=== PATIENT | female | born 1945 | race Caucasian/White ===

== ENCOUNTER 2016-11-21 05:50 | Day surgery (SDC) | payer MEDICARE, OTHER ==
[~2016-11-21] VITALS: Ht 160 cm; Wt 70.0 kg
[2016-11-21] MEDS ORDERED: ZOLP10TA PO (06:43)
[2016-11-21] MEDS ORDERED: METO25TA35 PO (06:43)
[2016-11-21] MEDS ORDERED: HYDR25TA6 PO (06:43)
[2016-11-21] MEDS ORDERED: LACTATED RINGERS 1,000 ML IV SCH (06:43)
[2016-11-21] MEDS ORDERED: LEVO100T PO (06:43)
[2016-11-21] MEDS ORDERED: LISI-170 PO (06:43)
[2016-11-21] MEDS ORDERED: vitamin b12 inj IM (06:43)
[2016-11-21 06:45] VITALS: BP 139/80
[2016-11-21] MEDS ORDERED: LIDOCAINE 1%, 2ML SQ PRN (07:00)
[2016-11-21] MEDS ORDERED: FENTANYL PF 100 MCG/2ML ONE (07:02)
[2016-11-21 07:29] LABS: ASPARTATE AMINO TRANSFERASE 14 U/L (15-37); BLOOD UREA NITROGEN 20 mg/dL (7-18)
[2016-11-21] MEDS ORDERED: PHENYLEPHRINE 10 MG/ML ONE (07:41)
[2016-11-21] MEDS ORDERED: EPHEDRINE 50 MG/ML, 1ML ONE ×2 (07:41→09:34)
[2016-11-21] MEDS ORDERED: GLYCOPYRROLATE 0.2MG/1ML ONE (07:41)
[2016-11-21] MEDS ORDERED: NEOSTIGMINE 1 MG/ML, 10ML ONE (07:41)
[2016-11-21] MEDS ORDERED: ONDANSETRON 2MG/ML, 2ML ONE (07:41)
[2016-11-21] MEDS ORDERED: PROPOFOL 10 MG/ML, 20ML ONE (07:41)
[2016-11-21] MEDS ORDERED: ROCURONIUM 10 MG/ML ONE (07:41)
[2016-11-21] MEDS ORDERED: FENTANYL PF 100 MCG/2ML IV PRN (09:00)
[2016-11-21] MEDS ORDERED: hydrALAzine 20 MG/ML, 1ML IV PRN (09:00)
[2016-11-21] MEDS ORDERED: PROMETHAZINE 25 MG/ML, 1ML IV PRN (09:00)
[2016-11-21] MEDS ORDERED: HYDROmorphone 1 MG/ML, 1ML IV PRN (09:00)
[2016-11-21] MEDS ORDERED: ACETAMINOPHEN 325 MG TABLET PO PRN (09:00)
[2016-11-21] MEDS ORDERED: OXYcodone 5 MG/5 ML ORAL.SOL UDC PO PRN (09:00)
[2016-11-21] MEDS ORDERED: METOPROLOL 1 MG/ML, 5ML IV PRN (09:00)
[2016-11-21] MEDS ORDERED: OMNIPAQUE 350 MG/ML, 50 ML BOTTLE ONE (09:16)
[2016-11-21] MEDS ORDERED: EPHEDRINE 50 MG/ML, 1ML IVPush PRN (10:00)
== END 2016-11-21 11:30 | disposition home or self-care (01) ==
LOC: OUT 05:50
PROVIDERS: ATTEND Internal Medicine Gastroenterology
DX: K80.51 Calculus of bile duct without cholangitis or cholecystitis with obstruction (principal); T85.898A Other specified complication of other internal prosthetic devices, implants and grafts, initial encounter; Y83.8 Other surgical procedures as the cause of abnormal reaction of the patient, or of later complication, without mention of misadventure at the time of the procedure; I10 Essential (primary) hypertension; E03.9 Hypothyroidism, unspecified; E53.8 Deficiency of other specified B group vitamins; Z90.49 Acquired absence of other specified parts of digestive tract; Z87.891 Personal history of nicotine dependence
CPT/HCPCS: 36415; 43265; 43276; 74328; 80053; 82330; 82803; 82947; 84132; 84295; 85014; 93005; C1725; C1769; C1874; J2370; J2405; J2704; J2710; J3010; J7120; Q9967; J3490

== ENCOUNTER 2017-03-06 11:48 | Day surgery (SDC) | payer MEDICARE, OTHER ==
[~2017-03-06] VITALS: Ht 160 cm; Wt 72.0 kg
[~2017-03-06 11:48] MED LIST: HYDR25TA6 PO; LEVO100T PO; LISI-170 PO; METO25TA35 PO; ZOLP10TA PO; vitamin b12 inj IM
[2017-03-06] MEDS ORDERED: LACTATED RINGERS 1,000 ML IV SCH (12:23)
[2017-03-06] MEDS ORDERED: VITAMIN D PO (12:26)
[2017-03-06] MEDS ORDERED: LIDOCAINE 1%, 2ML SQ PRN (12:30)
[2017-03-06 12:31] VITALS: BP 120/80
[2017-03-06 13:16] LABS: ASPARTATE AMINO TRANSFERASE 18 U/L (15-37); BLOOD UREA NITROGEN 11 mg/dL (7-18)
[2017-03-06] MEDS ORDERED: FENTANYL PF 100 MCG/2ML ONE (14:12)
[2017-03-06] MEDS ORDERED: MIDAZOLAM 1 MG/ML, 2ML ONE (14:12)
[2017-03-06] MEDS ORDERED: ROCURONIUM 10 MG/ML ONE (14:25)
[2017-03-06] MEDS ORDERED: PROPOFOL 10 MG/ML, 20ML ONE (14:25)
[2017-03-06] MEDS ORDERED: ONDANSETRON 2MG/ML, 2ML ONE (14:25)
[2017-03-06] MEDS ORDERED: DEXAMETHASONE 4 MG/ML, 1ML ONE (14:25)
[2017-03-06] MEDS ORDERED: ALBUTEROL SULFATE 2.5 MG/3 ML NPPB PRN (14:30)
[2017-03-06] MEDS ORDERED: ONDANSETRON 2MG/ML, 2ML IVPush PRN (14:30)
[2017-03-06] MEDS ORDERED: FENTANYL PF 100 MCG/2ML IV PRN (14:30)
[2017-03-06] MEDS ORDERED: LABETALOL 5MG/ML, 20ML IV PRN (14:30)
[2017-03-06] MEDS ORDERED: hydrALAzine 20 MG/ML, 1ML IV PRN (14:30)
[2017-03-06] MEDS ORDERED: HYDROmorphone 1 MG/ML, 1ML IV PRN (14:30)
[2017-03-06] MEDS ORDERED: METOCLOPRAMIDE 5 MG/ML, 2ML IV PRN (14:30)
[2017-03-06] MEDS ORDERED: ACETAMINOPHEN 325 MG TABLET PO PRN (14:30)
[2017-03-06] MEDS ORDERED: HYDROcodone/APAP 7.5-325MG/15ML UDC PO PRN (14:30)
[2017-03-06] MEDS ORDERED: OMNIPAQUE 350 MG/ML, 50 ML BOTTLE IV ONE (15:10)
[2017-03-06] MEDS ORDERED: CIPROFLOXACIN/PMX 400MG/200ML 200 ML ONE (15:11)
== END 2017-03-06 17:20 ==
LOC: OUT 11:48
PROVIDERS: ATTEND Internal Medicine Gastroenterology
DX: K80.50 Calculus of bile duct without cholangitis or cholecystitis without obstruction (principal); K82.3 Fistula of gallbladder; K83.1 Obstruction of bile duct; I10 Essential (primary) hypertension; D64.9 Anemia, unspecified; E87.1 Hypo-osmolality and hyponatremia; E03.9 Hypothyroidism, unspecified; Z90.49 Acquired absence of other specified parts of digestive tract; Z98.890 Other specified postprocedural states; Z87.891 Personal history of nicotine dependence
CPT/HCPCS: 36415; 43276; 43277; 74328; 80053; 93005; C1725; C1769; C1894; C2625; J0744; J1100; J2250; J2405; J2704; J3010; J3490; J7120; Q9967

== ENCOUNTER 2017-05-29 06:41 | Day surgery (SDC) | payer MEDICARE, OTHER ==
[~2017-05-29] VITALS: Ht 160 cm; Wt 71.1 kg
[~2017-05-29 06:41] MED LIST changes: +VITAMIN D PO
[2017-05-29] MEDS ORDERED: LACTATED RINGERS 1,000 ML IV SCH ×2 (07:11→07:30)
[2017-05-29 07:28] VITALS: BP 105/71
[2017-05-29] MEDS ORDERED: PROPOFOL 10 MG/ML, 20ML ONE (07:51)
[2017-05-29] MEDS ORDERED: ROCURONIUM 10 MG/ML ONE (07:52)
[2017-05-29] MEDS ORDERED: SUCCINYLCHOLINE 20 MG/ML, 10ML ONE (07:52)
[2017-05-29 08:14] LABS: ASPARTATE AMINO TRANSFERASE 13 U/L (15-37); BLOOD UREA NITROGEN 13 mg/dL (7-18)
[2017-05-29] MEDS ORDERED: DEXAMETHASONE 4 MG/ML, 1ML ONE ×2 (08:39)
[2017-05-29] MEDS ORDERED: ONDANSETRON 2MG/ML, 2ML ONE (08:39)
[2017-05-29] MEDS ORDERED: ONDANSETRON 2MG/ML, 2ML IVPush PRN (09:00)
[2017-05-29] MEDS ORDERED: PROMETHAZINE 25 MG/ML, 1ML IV PRN (09:00)
[2017-05-29] MEDS ORDERED: PHENYLEPHRINE 10 MG/ML ONE (09:03)
== END 2017-05-29 11:00 | disposition home or self-care (01) ==
LOC: OUT 06:41
PROVIDERS: ATTEND Internal Medicine Gastroenterology
DX: K83.8 Other specified diseases of biliary tract (principal); K80.50 Calculus of bile duct without cholangitis or cholecystitis without obstruction; I10 Essential (primary) hypertension
CPT/HCPCS: 36415; 43264; 43275; 43277; 74328; 80053; C1725; C1769; J0330; J1100; J2370; J2405; J2704; J7120